=== PATIENT | female | born 1945 ===

== ENCOUNTER 2017-03-02 05:50 | Observation (INO) | payer OTHER ==
--- NOTE | 2017-03-01 21:26 | GHP ---
[f rep st] PREOP HISTORY AND PHYSICAL Corrected report DATE OF ADMISSION: 03/02/2017 HISTORY: The patient is a very pleasant 71-year-old woman who has had a many year history of intermittent neck pain. More recently she has developed bilateral upper extremity paresthesias and numbness. She also has pain in the right greater than the left upper extremity. The pain radiates from the shoulder down the arm, radial forearm, into the thumb, index and long finger. The patient denies any loss of bowel or bladder control and no loss of balance or dexterity. Her symptoms of pain are worse at night. Symptoms are improved with changing positions. On a visual analog scale of 1-10 she rates her pain a 5. REVIEW OF SYSTEMS: A 10-point review is negative for any pertinent positives. SOCIAL HISTORY: The patient quit smoking in 1983. She denies current use of alcohol and denies use of tobacco. FAMILY HISTORY: Significant for cancer and diabetes mellitus. PAST MEDICAL HISTORY: Hypothyroidism, hypercholesterolemia, hypertension, fibromyalgia, myocardial infarction. PAST SURGICAL HISTORY: RCA cardiac stent, 3 breast lumpectomies, partial colectomy for diverticulitis, tonsillectomy and adenoidectomy, cholecystectomy, hysterectomy, left rotator cuff repair, appendectomy and ulcer surgery. ALLERGIES: To medications include Fentanyl, sulfa and iodine. MEDICATIONS: Hydrochlorothiazide, losartan, Vicodin, omeprazole, atorvastatin. The patient has stopped her Brilinta per her insurance coder. PHYSICAL EXAM: VITAL SIGNS: The patient is 5 feet 8 inches tall and weighs 178 pounds. Blood pressure is 138/74. GENERAL: Patient is alert and oriented x3. CARDIAC: Reveals regular rate and rhythm without detectable murmur, rub or gallop. LUNGS: Clear to auscultation. She has no wheezing or rhonchi. NEUROLOGIC: Exam shows she has good range of motion of her cervical spine with the exception of some mild diminished extension. Strength of bilateral upper extremities is 5/5 throughout. Light touch is diminished in the left thumb. Reflexes are all 2/4 with the exception of the left biceps and brachioradialis which are 3+/4. She is tender to palpation in the left trapezius. Spurling test is positive on the right and negative on the left. Zena test is negative x2. The patient does have 3 beats of clonus bilaterally. Babinski exam is downgoing bilaterally. Phalen test is positive on the right wrist. Her gait is normal. RADIOGRAPHIC STUDIES: X-rays and MRI of the cervical spine show moderate degenerative disk disease with retrolisthesis and Modic changes at C6-7 and moderate stenosis. At C5-6 she has moderate degenerative disk disease with moderate plus stenosis. There is what appears to be signal changes within the spinal cord at the C5-6 level. IMPRESSION: 1. Moderate plus stenosis C5 to C7. 2. Moderate degenerative disk disease C5 to C7. 3. Cervical myelopathy. 4. Probable right carpal tunnel syndrome. PLAN: The patient will be undergoing a C5 to C7 anterior diskectomy, fusion with instrumentation for her myelopathic symptoms and stenosis. Potential risks , benefits, possible complications have been thoroughly discussed including but not limited to, dural tear with CSF leak, meningitis, nerve root injury, partial or complete paralysis, infection, need for further surgery, junctional breakdown, lack of improvement in symptomatology, nonunion, DVT, PE, pneumonia, stroke, heart attack, hemorrhage, blindness, and . She has been off her air blood thinners now for a week. Her labs are normal with regard to pro time and partial thromboplastin time. She will be n.p.o. after midnight tonight. Copy requested to: YUE /[id number]/MODL Jovita acc#, 03/02/17, anna PETTY
[2017-03-02] MEDS ORDERED: ceFAZolin 2 GM/DEXTROSE 100 ML IV ONE (06:00)
[2017-03-02] MEDS ORDERED: LIDOCAINE 1% 2 ML INJ ONE (06:26)
[2017-03-02] MEDS ORDERED: LR 1,000 ML IV ONE (06:37)
[2017-03-02] MEDS ORDERED: THROMBIN (BOVINE) 20,000 UNIT VIAL TP ONE (07:50)
[2017-03-02] MEDS ORDERED: BACITRACIN 50,000 UNITS/10 ML SYR IRR ONE ×2 (07:51→10:10)
--- NOTE | 2017-03-02 07:57 | PDANEPAE ---
ANE History of Present Illness 71 yo for acdf ANE Past Medical History - Cardiovascular History Hx Hypertension: Yes Hx Arrhythmias: No Hx Chest Pain: No Hx Coronary Artery / Peripheral Vascular Disease: Yes Hx CHF / Valvular Disease: No Hx Palpitations: No - Pulmonary History Hx COPD: No Hx Asthma/Reactive Airway Disease: No Hx Recent Upper Respiratory Infection: No Hx Oxygen in Use at Home: No - Neurologic History Hx Cerebrovascular Accident: No Hx Seizures: No Hx Dementia: No - Endocrine History Hx Diabetes: No Hypothyroid: No Hyperthyroid: No - Renal History Hx Renal Disorders: Yes - Liver History Hx Hepatic Disorders: No - Neurological & Psychiatric Hx Hx Neurological and Psychiatric Disorders: No - Cancer History Hx Cancer: No - Congenital Disorder History Hx Congenital Disorders: Yes - GI History Hx Gastrointestinal Disorders: Yes - Chronic Pain History Chronic Pain: Yes ANE Review of Systems - Exercise capacity METS (RN): 4 METS ANE Patient History - Allergies Allergies/Adverse Reactions: fentanyl Allergy (Verified 02/20/17 11:25) "I GO NUTS IN THE HEAD" iodine Allergy (Verified 02/20/17 11:25) Hives Sulfa (Sulfonamide Antibiotics) Allergy (Verified 02/20/17 11:25) Hives - Home Medications Home Medications: Acetaminophen [Tylenol 325mg (*)] 325 mg PO DAILY 02/20/17 [Last Taken 03/01/17] Acetamn/Diphenhydramine 500/25 [Tylenol PM (*)] 1 each PO HS PRN 02/20/17 [Last Taken 02/28/17] Atorvastatin Calcium [Lipitor 40 mg (*)] 40 mg PO DAILY18 02/20/17 [Last Taken 03/01/17] Chlorthalidone [Chlorthalidone 25 mg (*)] 25 mg PO DAILY 02/20/17 [Last Taken ] Hydrocodone/Acetaminophen [Magnolia 5/325 (*)] 1 each PO DAILY PRN 02/20/17 [Last Taken 03/01/17] Losartan Potassium [Cozaar 50 mg (*)] 50 mg PO DAILY 02/20/17 [Last Taken ] Omeprazole [Prilosec 20 mg] 20 mg PO BID 02/20/17 [Last Taken 03/01/17] Ticagrelor [Brilinta] 90 mg PO BID 02/20/17 [Last Taken 02/28/17] - NPO status NPO Since - Liquids (Date): 03/01/17 NPO Since - Liquids (Time): 23:00 NPO Since - Solids (Date): 03/01/17 NPO Since - Solids (Time): 18:00 - Smoking Hx Smoking Status: Former smoker ANE Labs/Vital Signs - Vital Signs Blood Pressure: 115/57 Heart Rate: 49 Respiratory Rate: 16 O2 Sat (%): 96 Height: 5 ft 8 in Weight: 81.647 kg ANE Physical Exam - Airway Mallampati Score: Class 2 Mouth exam: normal dental/mouth exam - Pulmonary Pulmonary: no respiratory distress - Cardiovascular Cardiovascular: regular rate and rhythym - ASA Status ASA Status: II
[2017-03-02] MEDS ORDERED: MIDAZOLAM 2 MG/2 ML VIAL IVP ONE (07:59)
--- NOTE | 2017-03-02 08:05 | PDHPUP ---
History & Physical Update H&P update statement: This history and physical update is based on an assessment of the patient which was completed after admission or registration (within 24 hours), but prior to the surgery/procedure. H&P update: H&P reviewed & patient examined, no change in patient's condition since H&P completed
[2017-03-02] MEDS ORDERED: REMIFENTANIL HCL 1 MG VIAL ONE ×2 (08:06→10:13)
[2017-03-02] MEDS ORDERED: HYDROmorphONE/DILAUDID 2 MG/ML INJ ONE (08:06)
[2017-03-02] MEDS ORDERED: PROPOFOL/EMULSION 500 MG/50 ML BOTTLE IV ONE ×2 (08:07→10:13)
[2017-03-02] MEDS ORDERED: ROCURONIUM 50 MG/5 ML VIAL ONE (08:09)
[2017-03-02] MEDS ORDERED: DEXAMETHASONE 4 MG/ML VIAL ONE ×2 (08:10→08:26)
[2017-03-02] MEDS ORDERED: ZOLPIDEM TARTRATE 5 MG TAB PO PRN (08:22)
[2017-03-02] MEDS ORDERED: POLYETHYLENE GLYCOL 3350 17 GM PKT PO PRN (08:22)
[2017-03-02] MEDS ORDERED: LACTULOSE 20 GM/30 ML UDCUP PO PRN (08:22)
[2017-03-02] MEDS ORDERED: BISACODYL 10 MG SUPP PR PRN (08:22)
[2017-03-02] MEDS ORDERED: diphenhydrAMINE 25 MG CAP PO PRN (08:22)
[2017-03-02] MEDS ORDERED: MAGNESIUM HYDROXIDE 30 ML UDCUP PO PRN (08:22)
[2017-03-02] MEDS ORDERED: ONDANSETRON DISINTEGRATING 4 MG TAB PO PRN (08:22)
[2017-03-02] MEDS ORDERED: ONDANSETRON 4 MG/2 ML VIAL IVP PRN ×2 (08:22→11:14)
[2017-03-02] MEDS ORDERED: NS 1,000 ML IV SCH (08:30)
[2017-03-02] MEDS ORDERED: NON-FORMULARY NEW DRUG (Omeprazole [Prilosec 20 Mg] 20 MG) PO SCH (09:00)
[2017-03-02] MEDS ORDERED: ceFAZolin 1 GM VIAL ONE (10:13)
[2017-03-02] MEDS ORDERED: ONDANSETRON 4 MG/2 ML VIAL ONE ×2 (10:57→12:09)
[2017-03-02] MEDS ORDERED: HYDROmorphONE/DILAUDID 1 MG/ML SYR IVP PRN (11:14)
[2017-03-02] MEDS ORDERED: NALOXONE HCL 0.4 MG/ML INJ IVP PRN (11:14)
[2017-03-02] MEDS ORDERED: PROMETHAZINE HCL 25 MG/ML INJ IVP PRN (11:14)
--- NOTE | 2017-03-02 11:22 | POSTOPPROG ---
Post Op Note Date of Operation: 03/02/17 Surgeon: Michelle Ley Black Top Paver Operator: Glynn Davison SA Anesthesiologist: MD Juan David Anesthesia: GET(General Endotracheal) Pre-op Diagnosis: C5-7 stenosis and myelomalacia Post-op Diagnosis: same Indication: myelopathy Procedure: C5-7 acdf/i Findings: severes stenosis C5-7 and mod DDD Inf/Abcess present in the surg proc area at time of surgery?: No Depth: Deep Incisional (Fascial) EBL: 100 cc Complications: none. No changes in neuromonitoring.
--- NOTE | 2017-03-02 11:53 | POSTANESTH ---
Post Anesthetic Evaluation Respiratory Status: Normal, Stable, Tx Decrease in SpO2 Level of Consciousness/Mental Status: Can Participate in Eval Pain Control: Adequate, Prn Tx Ordered Nausea/Vomiting Control: Adequate, Prn Tx Ordered Complications Possibly Related to Anesthesia: None Noted
[2017-03-02] MEDS ORDERED: PROMETHAZINE HCL 25 MG/ML INJ ONE (12:08)
[2017-03-02] MEDS: FAMOTIDINE 20 MG TAB PO SCH ×2 (14:10→22:27)
[2017-03-02] MEDS: CHLORTHALIDONE 25 MG TAB PO SCH (14:10)
[2017-03-02] MEDS: LOSARTAN POTASSIUM 50 MG TAB PO SCH (14:11)
[2017-03-02] MEDS: PANTOPRAZOLE SODIUM 40 MG TAB PO SCH ×2 (14:11→22:26)
[2017-03-02] MEDS: SENNOSIDES/DOCUSATE SODIUM TAB PO SCH ×2 (14:12→22:26)
[2017-03-02] MEDS: ACETAMINOPHEN 500 MG TAB PO SCH ×2 (16:04→22:26)
[2017-03-02] MEDS: ceFAZolin 2 GM/DEXTROSE 100 ML IV SCH ×2 (16:05→22:27)
[2017-03-02] MEDS ORDERED: ATORVASTATIN CALCIUM 40 MG TAB PO SCH (18:00)
[2017-03-03 04:24] VITALS: TEMP 98.2
[2017-03-03] MEDS: ACETAMINOPHEN 500 MG TAB PO SCH ×2 (05:17→13:02)
[2017-03-03] MEDS: SENNOSIDES/DOCUSATE SODIUM TAB PO SCH (10:30)
[2017-03-03] MEDS: FAMOTIDINE 20 MG TAB PO SCH (10:30)
[2017-03-03] MEDS: PANTOPRAZOLE SODIUM 40 MG TAB PO SCH (10:30)
[2017-03-03] MEDS: CHLORTHALIDONE 25 MG TAB PO SCH (10:30)
[2017-03-03] MEDS: LOSARTAN POTASSIUM 50 MG TAB PO SCH (10:30)
[2017-03-03 11:44] VITALS: BP 124/64; PULSE 60; RESP 16; O2SAT 90
[2017-03-03] MEDS ORDERED: HYDROCODONE/APAP 5/325 TAB PO PRN (14:46)
[2017-03-03] MEDS ORDERED: oxyCODONE IR 5 MG TAB PO PRN (14:47)
--- NOTE | 2017-03-03 15:13 | SOAPPROG ---
SOAP Progress Note Assessment/Plan: Assessment: Post op day 1, s/p C5-7 ACDF/I. Pt doing quite well. Ready for discharge. Plan: 03/03/17 15:10 Pt doing well. Discharge to home. Pt has f/u appt and Rxs. Subjective: Pt states arms feel better. Pain well controlled. Pt wants to go home. Objective: Vital Signs Temp Pulse Resp BP Pulse Ox 36.8 C 60 16 124/64 H 90 L 03/03/17 11:44 03/03/17 11:44 03/03/17 11:44 03/03/17 11:44 03/03/17 11:44 03/02/17 03/03/17 03/04/17 05:59 05:59 05:59 Intake Total 3200 Output Total 300 Balance 2900 BUE motor 5/5. No Jose's syndrome. Wound clean and dry. No hematoma. Voice: mild dysphonia. ICD10 Worksheet Patient Problems: Problems Problem Status Onset Cervical spondylosis with myelopathy Acute - ICD10 Problem Qualifiers (1) Cervical spondylosis with myelopathy
--- NOTE | 2017-03-03 15:37 | GDS ---
[f rep st] DISCHARGE SUMMARY HOSPITAL COURSE: The patient is a pleasant 71-year-old right-hand dominant woman who has had a many year history of intermittent neck pain. More recently, she has developed bilateral upper extremity paresthesias and numbness and pain in the upper extremities. On exam, she was found to be myelopathic and on MRI she was found to have [id number] stenosi s, C5-C7. Due to the myelopathy, surgery was recommended. She was admitted on 03/02/2017 and broug ht to the operating room. Under a general anesthetic and using neuromonitoring, the patient underwe nt a C5-6, C6-7 anterior diskectomy fusion with instrumentation. Findings included severe stenosis, C5-C7, and moderate degenerative disk disease, C5-C7. There were no intraoperative complications. Postoperatively, she noted that her upper extremities felt markedly improved and the tingling and n umbness resolved. She was being seen by Speech Pathology, Physical Therapy and Occupational Therapy . The patient was recommended a soft diet and small portions. She was independent in ambulation an d activities of daily living. She was able to take a shower today. Her wound was clean, dry, and i ntact. She did have some dysphonia postoperatively and some mild dysphagia but overall mild. Neuro logical her strength of bilateral upper extremities was 5/5 throughout. Patient is being discharged to home in satisfactory condition. She has a followup appointment anderson driscoll scheduled. She also was given in advance oxycodone 5 mg 1-2 p.o. q.6 hours p.r.n. pain, Valium 5 mg 1 p.o. q.8 hours p.r.n. muscle spasms and Keflex 500 mg 1 p.o. 4 times daily x3 days. She does have a followup appointment in my office scheduled in advance. She and her family know that if she were to develop any concerns or complications to go to the nearest emergency room or call my office immediately. Otherwise, she has done exceedingly well, and is being discharged to home in satisfact ory condition. /[id number]/MODL
--- NOTE | 2017-03-05 23:07 | GOP ---
[f rep st] OPERATIVE REPORT DATE OF OPERATION: 03/02/2017 SURGEON: Michelle Sneed MD MARKETING SPECIALIST: Pierce Davison SA ANESTHESIA: General endotracheal intubation. ANESTHESIOLOGIST: Dr. Fall. PREOPERATIVE DIAGNOSIS: 1. Cervical myelopathy. 2. Moderate to severe stenosis, C5-6 and C6-7. 3. Moderate degenerative disk disease, C5 to C7. POSTOPERATIVE DIAGNOSIS: 1. Cervical myelopathy. 2. Moderate to severe stenosis, C5-6 and C6-7. 3. Moderate degenerative disk disease, C5 to C7. PROCEDURE PERFORMED: C5-6 and C6-7 anterior diskectomy, complete decompression, placement of 2 PEEK cages, anterior interbody arthrodesis and instrumentation, C5 to C7. FINDINGS: Moderate degenerative disk disease, C5 to C7, severe stenosis, C5 to C7. ESTIMATED BLOOD LOSS: 100 cc. INDICATIONS: The patient is a pleasant 71-year-old woman referred to me for a very long history of intermittent neck pain. More recently, she has developed bilateral upper extremity paresthesias and numbness. The patient also has bilateral upper extremity pain, right greater than left. On a 1-10 scale, her daily pain is a 5. Based on physical exam with myelopathy and findings of the MRI, surg doretha was recommended. No guarantees were given in regard to surgical outcome. Potential risks, bene fits, and possible complications have been thoroughly discussed with the patient, including, but not limited to, dural tear with CSF leak, meningitis, nerve root injury, partial or complete paralysis, nonunion, junctional breakdown, need for further surgery, dysphagia, aphonia, Jose syndrome, DVT, PE, pneumonia, stroke, heart attack, hemorrhage, blindness, and . DESCRIPTION OF PROCEDURE: After obtaining both written and verbal consent from the patient, she was brought to the operating room, where she underwent a general endotracheal intubation. The patient received IV antibiotics. A timeout was performed with the entire operating room team, confirming hilary schneider's name, date of , planned surgical procedure, antibiotics given, and allergies to medicat ions. The patient was positioned on the Liu headrest with her head and neck in mild extension. Somat osensory evoked potentials, motor evoked potentials, and EMGs were set up and performed to increase the safety of the surgical procedure. A lateral fluoroscopic x-ray was obtained for localization us ing an 18-gauge needle taped onto her skin. This was removed. The anterior aspect of the cervical spine was then prepped and draped in the normal sterile fashion. A transverse left-sided incision was made on the anterior left side of the cervical spine at C6. Th e incision was brought down through skin and subcutaneous tissues into the overlying platysma, which was sharply incised with Bovie cautery. The deep cervical fascia was incised along the medial bord er of the sternocleidomastoid muscle. The trachea and esophagus were gently retracted toward the mi dline. The carotid sheath and its contents were identified and avoided, and these were lateral. Th e pretracheal and prevertebral fascia were bluntly dissected. The anterior aspect of the cervical s pine was identified. Two bent spinal needles were placed at disk spaces and initially this showed i t to be at C4-5 and C5-6 and therefore the proximal one was moved distally and then a new x-ray conf irmed C5-6 and C6-7 levels, which were the indicated levels based on the consent. The operating evgeny roscope was brought in for further visualization. The bent spinal needles were removed. The anteri or longitudinal ligament was taken down from C5 to C7 with Bovie cautery. Montezuma pins measuring 12 mm in length were placed, one at C5 and one at C6. Very minimal distraction was placed. The operat ing microscope was utilized then to create an annulotomy at C5-6. The disk was moderately degenerat janusz. A 2-0 curved curette was used to decorticate the vertebral endplates back to good bleeding bon e. The posterior longitudinal ligament was hypertrophied and causing severe stenosis. This was gen tly peeled off the dura. Care was taken to protect the dura at all times and there was no evidence of spinal fluid leakage. The stenosis was quite severe both centrally and within the neural foramen bilaterally. The foramina were opened up with a 2 mm Kerrison bilaterally. A 5 mm barrel-shaped b ur was then used to decorticate the vertebral endplates and to make them parallel. Trials were util ized from the [employer] Sapphire Plate System. Ultimately, a 10 mm trial had the best fit and therefore a 10 mm lordosed Crystal PEEK Ti-Larkin cage was packed with local autogenous saved bone gr aft and demineralized bone matrix. It was then tamped into position at C5-6 and recessed about 1 mm . There were no changes in spinal cord monitoring. A micro nerve hook was used to palpate posterio r to the bone graft and this showed no iatrogenic compression of the spinal cord. Then, the exact s jose raul thing was performed at C6-7. This disk was also moderately degenerative and the stenosis mainly due to the posterior longitudinal hypertrophy and some ligamentum flavum hypertrophy was causing se jacquie stenosis centrally within the neural foramen. This was decompressed with a 2 mm dae Garcia care to protect the spinal cord and the exiting nerve roots. Again, trials were utilized and ano ther 10 mm Ti-Larkin Crystal PEEK cage was used and was packed with local bone graft and DBM. It was tamped into position at C6-7 and recessed 1 to 2 mm. There were no changes in spinal cord monitorin g. At this time, the anterior aspect of the cervical spine was contoured using a 5 mm round bur to better accept a plate. A 35 mm Sapphire plate by [employer] was chosen, contoured into cervica l lordosis and placed under direct visualization using 4.0 x 12 mm screws, two at C5, two at C6 and two at C7 with good purchase. The interlocking screws were then tightened down. The left C5 interl ocking screw was not able to be tightened, but nonetheless the actual screw had excellent purchase. An AP and a lateral fluoroscopic view showed good position of the internal fixation in the PEEK cag es from C5 to C7. The wound was then irrigated again and under loupe magnification visualized. Hem ostasis was obtained with bipolar cautery, thrombin-soaked Gelfoam, and Avitene. Hemostasis was com pletely obtained prior to closure. No drain was then necessary. The wound was closed using a 2-0 u ndyed Vicryl in an interrupted loose fashion in the platysma followed by a 4-0 Prolene in the skin. Steri-Strips were applied. Sterile dressing was applied. Soft cervical collar was placed. Sevilla catheter was removed. The patient was then extubated in the operating room and brought to the [facility] doretha room in satisfactory condition. IMPLANTS: [employer] Sapphire plate and screws. COMPLICATIONS: None. POSTOPERATIVE PLAN: Close neurologic observation, close airway observation, PT, OT and pain control . /[id number]/MODL
== END 2017-03-03 17:06 | disposition home or self-care (01) ==
LOC: F3E 05:50 → INTOOBSV 05:50 → F3N 07:28
PROVIDERS: ADMIT Orthopaedic Surgery Orthopaedic Surgery of the Spine; ATTEND Orthopaedic Surgery Orthopaedic Surgery of the Spine
PROC: B01B1ZZ Fluoroscopy of Spinal Cord using Low Osmolar Contrast (ICD-10-PCS; principal; 2017-03-02 08:15)
PROC: 0RG20A0 Fusion of 2 or more Cervical Vertebral Joints with Interbody Fusion Device, Anterior Approach, Anterior Column, Open Approach (ICD-10-PCS; principal; 2017-03-02 08:15)
DX: M48.02 Spinal stenosis, cervical region (principal); M50.022 Cervical disc disorder at C5-C6 level with myelopathy; M50.023 Cervical disc disorder at C6-C7 level with myelopathy; E03.9 Hypothyroidism, unspecified; E78.00 Pure hypercholesterolemia, unspecified; I10 Essential (primary) hypertension; M79.7 Fibromyalgia; I25.2 Old myocardial infarction; Z95.5 Presence of coronary angioplasty implant and graft
CPT/HCPCS: 22551; 22552; 76001; 92610; 97161; 97165; 97535; C1713; G8978; G8979; G8980; G8987; G8988; G8989; G8996; G8997; J0690; J1100; J1170; J2250; J2405; J2550; J2704